=== PATIENT | female | born 1990 | race Caucasian/White ===

== ENCOUNTER 2017-03-17 13:31 | Emergency (ER) | payer OTHER ==
[2017-03-17 13:38] VITALS: BP 120/87; PULSE 98; TEMP 98.5; BMI 25.6
[2017-03-17] MEDS ORDERED: ALBUTEROL SO4 2.5/IPRATROPIUM 0.5 INH SOL 3 ML VIAL.NEB. NEB ONE ×2 (13:49→13:51)
[2017-03-17] MEDS ORDERED: predniSONE 20 MG TABLET (UD) PO ONE (13:58)
[2017-03-17] MEDS ORDERED: predniSONE 20 MG TABLET (UD) ONE (14:05)
--- NOTE | 2017-03-17 14:10 | PDOC ---
History of Present Illness - General Chief Complaint: Respiratory Stated Complaint: COUGH,SOB Time Seen by Provider: 03/17/17 13:47 History Source: Patient - History of Present Illness Initial Comments: 03/17/17 14:08 26 yo F with h/o asthma, here with c/o cough, sob and wheezing. states season changes are trigger for her. hasn't had an exacerbation in several years. no f/ c cough dry nonproductive. did have coughing fits wtih post tussive emesis once. started 3 days ago. tried using albuterol at home, was . no f/c. no cp. no h/o intubation or ICU admissions. Past History - Past Medical History Allergies/Adverse Reactions: Allergies Allergy/AdvReac Type Severity Reaction Status Date / Time No Known Allergies Allergy Verified 03/17/17 13:33 Home Medications: Ambulatory Orders Albuterol Sulfate Inhaler - [Ventolin HFA Inhaler -] 2 puff IH Q4H #1 inhaler NS 03/17/17 Prednisone [Deltasone -] 20 mg PO DAILY #10 tablet 03/17/17 Asthma: Yes (SEASONAL) Cancer: No Cardiac Disorders: No Diabetes: No HTN: No Seizures: No Thyroid Disease: No - Reproductive History (#): 2 Para: 1 Cervical CA: No Dysfunctional Uterine Bleeding: No Ectopic : No Endometrial CA: No Polycystic Ovaries: No Therapeutic (s) & number: No Tubal Ligation: No Spontaneous : 0 - Immunization History Td Vaccination: Yes Immunization Up to Date: Yes - Psycho/Social/Smoking Cessation Hx Anxiety: No Suicidal Ideation: No Smoking Status: No Smoking History: Current every day smoker Have you smoked in the past 12 months: No Number of Cigarettes Smoked Daily: 4 Cigars Per Day: 3 Information on smoking cessation initiated: No 'Breaking Loose' booklet given: 03/08/14 Hx Alcohol Use: No Drug/Substance Use Hx: No Substance Use Type: None Hx Substance Use Treatment: No Review of Systems - Review of Systems Constitutional: No: Chills, Diaphoresis, Fever HEENTM: No: Eye Pain, Blurred Vision Respiratory: Yes: Cough, Shortness of Breath, Wheezing. No: Orthopnea Cardiac (ROS): No: Chest Pain ABD/GI: No: Abdominal Distended, Nausea Musculoskeletal: No: Back Pain All Other Systems: Reviewed and Negative *Physical Exam - Vital Signs Last Vital Signs Temp Pulse Resp BP Pulse Ox 98.5 F 98 H 18 120/87 98 03/17/17 13:32 03/17/17 13:32 03/17/17 13:32 03/17/17 13:32 03/17/17 13:32 - Physical Exam General Appearance: Yes: Nourished, Appropriately Dressed HEENT: positive: Normal ENT Inspection, Normal Voice Neck: positive: Tender Respiratory/Chest: positive: Wheezing, Other (end exp wheezing bilaterally normal effort). negative: Accessory Muscle Use Cardiovascular: positive: Regular Rhythm, Regular Rate, S1, S2. negative: Edema , JVD Gastrointestinal/Abdominal: positive: Soft, Other (nontender). negative: Tender Musculoskeletal: positive: Normal Inspection Extremity: negative: Pedal Edema Integumentary: positive: Normal Color, Dry, Warm Neurologic: positive: Fully Oriented, Alert, Normal Mood/Affect ED Treatment Course - ADDITIONAL ORDERS Additional order review: Laboratory Results 03/17/17 13:48 Urine HCG, Qual Negative - Medications Given in the ED: ED Medications Discontinued Medications Generic Name Dose Route Start Last Admin Trade Name Freq PRN Reason Stop Dose Admin Albuterol/Ipratropium 1 amp 03/17/17 13:51 03/17/17 13:54 Duoneb - NEB 03/17/17 13:52 1 amp ONCE ONE Administration Medical Decision Making - Medical Decision Making 03/17/17 14:10 26 yo F with h/o asthma, allergic, seasonal trigger. will treate with duoneb. ucg. steroids x 5 days recommend zyrtec during summer to help reduce allergic trigger. observationjennifer dc home with alb inh and steroids. 03/17/17 14:17 pt feeling better after breathing tx. lencho wt steroids and inh. *DC/Admit/Observation/Transfer Diagnosis at time of Disposition: Asthma attack - Discharge Dispostion Disposition: HOME Condition at time of disposition: Stable Admit: No - Prescriptions Prescriptions: Prednisone [Deltasone -] 20 mg PO DAILY #10 tablet Albuterol Sulfate Inhaler - [Ventolin HFA Inhaler -] 2 puff IH Q4H #1 inhaler NS - Patient Instructions Printed Discharge Instructions: Asthma -- Adult Additional Instructions: take prednisone 20 mg daily x 5 days, starting tomorrow March 18, 2017. you can use albuterol 2 puffs every 4 hours as needed for coughing, wheezing or shortness of breath. use zyrtec 5 mg daily to help with allergy symptoms. you can buy over the counter. return for any worsening symtpoms, persistant wheezing despite medications or any concerns.
== END 2017-03-17 14:32 | disposition home or self-care (01) ==
LOC: FER 13:31
PROC: 3E0F7GC Introduction of Other Therapeutic Substance into Respiratory Tract, Via Natural or Artificial Opening (ICD-10-PCS; principal; 2017-03-17)
DX: J45.901 Unspecified asthma with (acute) exacerbation (principal); Z72.0 Tobacco use
CPT/HCPCS: 84703; 99281-25

== ENCOUNTER 2018-04-30 21:15 | Emergency (ER) | payer SELFPAY ==
[2018-04-30 21:35] VITALS: BP 134/87; PULSE 120; TEMP 99.8; BMI 28.3
[2018-04-30] MEDS ORDERED: CLINDAMYCIN HCL 300 MG CAPSULE PO ONE (21:39)
--- NOTE | 2018-04-30 21:43 | PDOC ---
History of Present Illness - General History Source: Patient Exam Limitations: No Limitations - History of Present Illness Initial Comments: 04/30/18 22:06 The patient is a 28 year old female, with a significant PMH of asthma, who presents to the emergency department with potential abscess to the right lower abdomen that occurred 2 days ago. Patient noticed a tender, warm to touch, non purulent and painful pimple 2 days ago with a severity of 9/10. Patient reports no relief with soaking pimple with epsom salt and warm water. The patient reports no previous episode of cellulitis or skin abscess, The patient denies chest pain, shortness of breath, headache and dizziness. Denies fever, chills, nausea, vomit, diarrhea and constipation. Allergies: NKDA Past surgical history: None reported Social history: Current smoker (4 cigarettes a day) and drinks alcohol occasionally but denies recreational drugs. PCP: None reported <Eun Delvalle - Last Filed: 04/30/18 22:15> <Constance Montez - Last Filed: 05/01/18 01:01> - General Chief Complaint: Pain, Acute Stated Complaint: POSSIBLE ABCESS TO ABDOMEN Time Seen by Provider: 04/30/18 21:21 Past History <Eun Delvalle - Last Filed: 04/30/18 22:15> - Past Medical History Asthma: Yes (SEASONAL) Cancer: No Cardiac Disorders: No COPD: No Diabetes: No HTN: No Seizures: No Thyroid Disease: No - Reproductive History (#): 2 Para: 1 Cervical CA: No Dysfunctional Uterine Bleeding: No Ectopic : No Endometrial CA: No Polycystic Ovaries: No Therapeutic (s) & number: No Tubal Ligation: No Spontaneous : 0 - Immunization History Td Vaccination: Yes Immunization Up to Date: Yes - Suicide/Smoking/Psychosocial Hx Smoking Status: No Smoking History: Current every day smoker Have you smoked in the past 12 months: Yes Number of Cigarettes Smoked Daily: 4 Cigars Per Day: 3 Information on smoking cessation initiated: Yes 'Breaking Loose' booklet given: 03/08/14 Hx Alcohol Use: Yes (OCCAS) Drug/Substance Use Hx: No Substance Use Type: None Hx Substance Use Treatment: No <Constance Montez - Last Filed: 05/01/18 01:01> - Past Medical History Allergies/Adverse Reactions: Allergies Allergy/AdvReac Type Severity Reaction Status Date / Time No Known Allergies Allergy Verified 04/30/18 21:16 Home Medications: Ambulatory Orders Albuterol Sulfate Inhaler - [Ventolin HFA Inhaler -] 2 puff IH Q4H #1 inhaler NS 03/17/17 Clindamycin HCl 300 mg PO TID #20 capsule 04/30/18 Review of Systems - Review of Systems Able to Perform ROS?: Yes Comments:: 04/30/18 22:06 GENERAL/CONSTITUTIONAL: No fever or chills. No weakness. HEAD, EYES, EARS, NOSE AND THROAT: No change in vision. No ear pain or discharge. No sore throat. CARDIOVASCULAR: No chest pain or shortness of breath. RESPIRATORY: No cough, wheezing, or hemoptysis. GASTROINTESTINAL: No nausea, vomiting, diarrhea or constipation. GENITOURINARY: No dysuria, frequency, or change in urination. MUSCULOSKELETAL: No joint or muscle swelling or pain. No neck or back pain. SKIN: +Right lower abdomen pimple NEUROLOGIC: No headache, vertigo, loss of consciousness, or change in strength/ sensation. ENDOCRINE: No increased thirst. No abnormal weight change. HEMATOLOGIC/LYMPHATIC: No anemia, easy bleeding, or history of blood clots. ALLERGIC/IMMUNOLOGIC: No hives or skin allergy. <Eun Delvalle - Last Filed: 04/30/18 22:15> *Physical Exam - Vital Signs Last Vital Signs Temp Pulse Resp BP Pulse Ox 99.8 F H 120 H 18 134/87 97 04/30/18 21:18 04/30/18 21:18 04/30/18 21:18 04/30/18 21:18 04/30/18 21:18 - Physical Exam Comments: 04/30/18 22:07 GENERAL: Awake, alert, and fully oriented, in no acute distress HEAD: No signs of trauma EYES: PERRLA, EOMI, sclera anicteric, conjunctiva clear ENT: Auricles normal inspection, hearing grossly normal, nares patent, oropharynx clear without exudates. Moist mucosa NECK: Normal ROM, supple, no lymphadenopathy, JVD, or masses LUNGS: Breath sounds equal, clear to auscultation bilaterally. No wheezes, and no crackles HEART: Regular rate and rhythm, normal S1 and S2, no murmurs, rubs or gallops ABDOMEN: Soft, nontender, normoactive bowel sounds. No guarding, no rebound. No masses EXTREMITIES: Normal range of motion, no edema. No clubbing or cyanosis. No cords, erythema, or tenderness NEUROLOGICAL: Cranial nerves II through XII grossly intact. Normal speech, normal gait SKIN: 3cm x 3cm erythematous tender indurated area to the midline abdomen wall with punctate central lesion.+ Faint erythema 4 cm border. No discharge or fluctuant noted. <Eun Delvalle - Last Filed: 04/30/18 22:15> - Vital Signs Last Vital Signs Temp Pulse Resp BP Pulse Ox 99.8 F H 120 H 18 134/87 97 04/30/18 21:18 04/30/18 21:18 04/30/18 21:18 04/30/18 21:18 04/30/18 21:18 <Constance Montez - Last Filed: 05/01/18 01:01> ED Treatment Course - Medications Given in the ED: ED Medications Discontinued Medications Generic Name Dose Route Start Last Admin Trade Name Adrianne PRN Reason Stop Dose Admin Clindamycin HCl 300 mg 04/30/18 21:39 04/30/18 21:46 Cleocin - PO 04/30/18 21:40 300 mg ONCE ONE Administration <Eun Delvalle - Last Filed: 04/30/18 22:15> Progress Note - Progress Note Progress Note: Documentation has been prepared under my direction and personally reviewed by me in its entirety. I attest that this documented accurately reflects all work, treatment, procedures and medical decision making performed by me. <Constance Montez - Last Filed: 05/01/18 01:01> Medical Decision Making - Medical Decision Making As noted above, this otherwise healthy 28-year-old woman presents with a several day history of progressive inflammation and tenderness of the lower abdominal wall. Lesion had started as a "pimple"; patient had squeezed the area and obtained clear yellowish material several days ago. Since then, the area has become more edematous, erythematous and painful. No previous history of skin abscesses/cellulitis. No history of resistant organism colonization or infection. Exam as noted The area is tender/indurated without fluctuance or discharge. Clinical presentation more consistent with cellulitis rather than drainable abscess. Patient will be discharged with instructions to continue warm packing the area. Antibiotics will be started for the cellulitic process: Clindamycin 300 mg will be given here and prescription for clindamycin 3 times a day for one week will be sent to her pharmacy. Meanwhile, the patient should return if she has increasing swelling/redness/ pain or has drainage from the area. <Constance Montez - Last Filed: 05/01/18 01:01> *DC/Admit/Observation/Transfer - Attestations Scribe Attestion: 04/30/18 22:09 Documentation prepared by Eun Delvalle, acting as medical transcriptionist for Constance Montez MD. <Eun Delvalle - Last Filed: 04/30/18 22:15> <Constance Montez - Last Filed: 05/01/18 01:01> Diagnosis at time of Disposition: Abdominal wall cellulitis - Discharge Dispostion Disposition: HOME Condition at time of disposition: Stable - Prescriptions Prescriptions: Clindamycin HCl 300 mg PO TID #20 capsule - Patient Instructions Printed Discharge Instructions: DI for Cellulitis -- Adult Additional Instructions: Continue moist heat to area of abdominal wall at least 3-4 times a day Clindamycin 300 mg 3 times a day for 1 week Acetaminophen/ibuprofen/naproxen as needed for pain Return to ER if you have worsening pain/redness/high fever/discharge from area Follow-up with your general doctor within the next 2-3 days
[2018-04-30] MEDS ORDERED: CLINDAMYCIN HCL 150 MG CAPSULE (FP) ONE (21:45)
== END 2018-04-30 21:49 | disposition home or self-care (01) ==
LOC: FER 21:15
DX: L03.311 Cellulitis of abdominal wall (principal)
CPT/HCPCS: 99281-25

== ENCOUNTER 2018-10-01 00:32 | Emergency (ER) | payer OTHER ==
[2018-10-01 00:38] VITALS: BMI 27.4
--- NOTE | 2018-10-01 01:11 | PDOC ---
History of Present Illness - General Chief Complaint: Nausea/Vomiting Stated Complaint: VOMITING SINCE THIS AM Time Seen by Provider: 10/01/18 00:41 - History of Present Illness Initial Comments: 10/01/18 01:26 28-year-old female with no significant past medical history presents emergency Department with 1 day of nausea, vomiting and diarrhea. Patient reports multiple episodes of brown, nonbloody watery diarrhea as well as 3 episodes of nonbloody nonbilious emesis. She denies any abdominal pain but reports epigastric cramping just prior to vomiting. Denies any fevers or chills. Came in tonight because she stated that she felt dehydrated. Reported gradual onset global headache just prior to arrival to the ED that has resolved after IV fluids. Currently denies nausea. Denies any dizziness or weakness. Denies sore throat or cough. Denies chest pain or shortness of breath. +dysuria since this morning as well. No sick contacts or recent travel. No treatments tried. Past History - Past Medical History Allergies/Adverse Reactions: Allergies Allergy/AdvReac Type Severity Reaction Status Date / Time No Known Allergies Allergy Verified 10/01/18 00:33 Home Medications: Ambulatory Orders Albuterol Sulfate Inhaler - [Ventolin HFA Inhaler -] 2 puff IH Q4H #1 inhaler NS 03/17/17 Asthma: Yes (SEASONAL) Cancer: No Cardiac Disorders: No COPD: No Diabetes: No HTN: No Seizures: No Thyroid Disease: No - Reproductive History (#): 2 Para: 1 Cervical CA: No Dysfunctional Uterine Bleeding: No Ectopic : No Endometrial CA: No Polycystic Ovaries: No Therapeutic (s) & number: No Tubal Ligation: No Spontaneous : 0 - Immunization History Td Vaccination: Yes Immunization Up to Date: Yes - Suicide/Smoking/Psychosocial Hx Smoking Status: No Smoking History: Current every day smoker Have you smoked in the past 12 months: Yes Number of Cigarettes Smoked Daily: 4 Cigars Per Day: 3 Information on smoking cessation initiated: Yes 'Breaking Loose' booklet given: 03/08/14 Hx Alcohol Use: No Drug/Substance Use Hx: No Substance Use Type: None Hx Substance Use Treatment: No Review of Systems - Review of Systems Comments:: 10/01/18 01:39 GENERAL/CONSTITUTIONAL: No fever or chills. No weakness. HEAD, EYES, EARS, NOSE AND THROAT: No change in vision. No ear pain or discharge. No sore throat. GASTROINTESTINAL: +nausea, vomiting, diarrhea, no constipation. GENITOURINARY: +dysuria, no frequency, or change in urination. CARDIOVASCULAR: No chest pain or shortness of breath. RESPIRATORY: No cough, wheezing, or hemoptysis. MUSCULOSKELETAL: No joint or muscle swelling or pain. No neck or back pain. SKIN: No rash NEUROLOGIC: +headache, vertigo, loss of consciousness, or change in strength/ sensation. ENDOCRINE: No increased thirst. No abnormal weight change. HEMATOLOGIC/LYMPHATIC: No anemia, easy bleeding, or history of blood clots. ALLERGIC/IMMUNOLOGIC: No hives or skin allergy. *Physical Exam - Vital Signs Last Vital Signs Temp Pulse Resp BP Pulse Ox 98.6 F 112 H 16 117/84 99 121818 00:34 1818 00:34 1818 00:34 1818 00:34 10/01/18 00:34 - Physical Exam Comments: 10/01/18 01:41 GENERAL: Awake, alert, and fully oriented, in no acute distress EYES: PERRLA, EOMI, sclera anicteric, conjunctiva clear ENT: Oropharynx clear without exudates. dry MM NECK: Normal ROM, supple, no lymphadenopathy, JVD, or masses LUNGS: Breath sounds equal, clear to auscultation bilaterally. No wheezes, and no crackles HEART: tachy to 106 but regular, normal S1 and S2, no murmurs, rubs or gallops ABDOMEN: Soft, nontender, normoactive bowel sounds. No guarding, no rebound. No masses : No CVAT EXTREMITIES: Normal range of motion, no edema. No cords, erythema, or tenderness NEUROLOGICAL: Normal speech, cranial nerves intact, equal strength and sensation b/l SKIN: Warm, Dry, normal turgor, no rashes or lesions noted. Moderate Sedation - Procedure Monitoring Vital Signs: Procedure Monitoring Vital Signs Temperature 98.6 F 10/01/18 00:34 Pulse Rate 112 H 18 00:34 Respiratory Rate 16 1818 00:34 Blood Pressure 117/84 18 00:34 O2 Sat by Pulse Oximetry (%) 99 10/01/18 00:34 ED Treatment Course - LABORATORY CBC & Chemistry Diagram: 12/18/18 01:30 10/01/18 01:02 Medical Decision Making - Medical Decision Making 10/01/18 01:42 28-year-old female with no significant past medical history presents to the emergency Department with 1 day of nausea, vomiting, diarrhea. Vitals remarkable for tachycardia to 120s. Exam with dry mucous membranes, otherwise unremarkable with benign abdominal exam. Likely viral gastroenteritis. Plan to check labs, UA given dysuria, UPT, rpt abd exam, and reassess. Will give 2L NS, pt declines medication for nausea. 10/01/18 02:39 Labs with no WBC, slightly hypomg and hypok -> repleted with IV Mg, PO KCl Upt neg Rpt HR 96 UA pending Currently PO challenging 10/01/18 03:27 Tolerating PO Feels much better Electrolytes repleted UA negative for infection Requests DC home, also requests work note Well appearing, non-toxic PT to f/u with PMD within 1-2 days I discussed the physical exam findings, ancillary test results and final diagnoses with the patient. I answered all of the patient's questions. The patient was satisfied with the care received and felt comfortable with the discharge plan and treatment plan. The patient will call their primary care physician within 24 hours to arrange follow-up and will return to the Emergency Department with any new, persistent or worsening symptoms. *DC/Admit/Observation/Transfer Diagnosis at time of Disposition: Gastroenteritis, Vomiting, Diarrhea - Discharge Dispostion Disposition: HOME Condition at time of disposition: Stable Decision to Admit order: No - Referrals - Patient Instructions Printed Discharge Instructions: DI for Vomiting -- Adult Additional Instructions: Follow up with your primary doctor within 1-2 days Drink plenty of fluids and stay hydrated Take zofran as needed every 8 hours for nausea Return to the emergency department if you have any new, worsening, or concerning symptoms - Post Discharge Activity - Attestations Physician Attestion: 10/01/18 03:33 I, Dr. Elena Araiza MD, attest that this document has been prepared under my direction and personally reviewed by me in its entirety. I further attest, that it accurately reflects all work, treatment, procedures and medical decision -making performed by me.
[2018-10-01] MEDS ORDERED: SODIUM CHLORIDE 1,000 ML IV STA ×2 (01:26)
[2018-10-01 01:59] LABS: BASO % 0.1 % (0-2.0); EOS % 1.2 % (0-4.5); HEMATOCRIT 38.8 % (32.4-45.2); HEMOGLOBIN 13.7 GM/dL (10.7-15.3); MCH 30.1 pg (25.7-33.7); MCHC 35.3 g/dl (32.0-36.0); MEAN CELL VOLUME 85.4 fl (80-96); MEAN PLT VOLUME 10.5 fl (7.5-11.1); MONO % 5.2 % (3.8-10.2); NEUT % 69.5 % (42.8-82.8); PLATELET COUNT 129 K/MM3 (134-434); RBC 4.54 M/mm3 (3.60-5.2); RDW 13.1 % (11.6-15.6); WHITE BLOOD COUNT 5.8 K/mm3 (4.0-10.0)
[2018-10-01 02:16] LABS: HCG,QUALITATIVE URINE NEGATIVE
[2018-10-01 02:21] LABS: URINE APPEARANCE CLEAR; URINE BILIRUBIN NEGATIVE (<2.0 mg/dL); URINE COLOR YELLOW; URINE GLUCOSE (UA) NEGATIVE (NEGATIVE); URINE KETONE TRACE (NEGATIVE); URINE LEUK ESTERASE TRACE (NEGATIVE); URINE NITRITE NEGATIVE (NEGATIVE); URINE PROTEIN NEGATIVE (NEGATIVE); URINE UROBILINOGEN NEGATIVE mg/dL (0.2-1.0)
[2018-10-01 02:21] LABS: MAGNESIUM 1.6 mg/dL (1.8-2.4)
[2018-10-01 02:22] LABS: ALK PHOS 87 U/L (45-117); ANION GAP 8 MMOL/L (8-16); BILIRUBIN,TOTAL 0.5 mg/dL (0.2-1); BLOOD UREA NITROGEN 14 mg/dL (7-18); CALCIUM 8.1 mg/dL (8.5-10.1); CHLORIDE 104 mmol/L (98-107); CO2 24 mmol/L (21-32); CREATININE 0.5 mg/dL (0.55-1.3); GLUCOSE,RANDOM 97 mg/dL (74-106); POTASSIUM 3.3 mmol/L (3.5-5.1); SGOT/AST 19 U/L (15-37); SGPT/ALT 19 U/L (13-61); SODIUM 135 mmol/L (136-145); TOT PROT 7.2 g/dl (6.4-8.2)
[2018-10-01] MEDS ORDERED: MAGNESIUM SULF 50% (8.12 MEQ/2 ML-1 GM VIAL) IVPB ONE (02:44)
[2018-10-01] MEDS ORDERED: POTASSIUM CHLORIDE ORAL LIQUID 20 MEQ/15 ML PO ONE (02:44)
[2018-10-01 02:46] VITALS: BP 116/65; PULSE 97; TEMP 98.9
[2018-10-01] MEDS ORDERED: POTASSIUM CHLORIDE ORAL LIQUID 20 MEQ/15 ML ONE (02:50)
[2018-10-01] MEDS ORDERED: MAGNESIUM 1GM/D5W - 1 GM/100 ML IVPB IVPB ONE (02:51)
[2018-10-01 03:29] LABS: EPI CELLS FEW /HPF (FEW); URINE HYALINE CAST 5 /lpf; URINE MUCUS MANY
== END 2018-10-01 03:38 | disposition home or self-care (01) ==
LOC: FER 00:32
PROC: 3E033GC Introduction of Other Therapeutic Substance into Peripheral Vein, Percutaneous Approach (ICD-10-PCS; principal; 2018-10-01)
PROC: 3E0337Z Introduction of Electrolytic and Water Balance Substance into Peripheral Vein, Percutaneous Approach (ICD-10-PCS; 2018-10-01)
DX: K52.9 Noninfective gastroenteritis and colitis, unspecified (principal); R11.2 Nausea with vomiting, unspecified
CPT/HCPCS: 36415; 80053; 81003; 81015; 83690; 83735; 84703; 85025; 87086; 99282-25; J7030

== ENCOUNTER 2019-03-04 10:04 | Emergency (ER) | payer OTHER ==
--- NOTE | 2019-03-04 10:09 | PDOC ---
History of Present Illness - General Chief Complaint: Respiratory Stated Complaint: SHORT OF BREATH CONGESTION Time Seen by Provider: 03/04/19 10:08 History Source: Patient Exam Limitations: No Limitations - History of Present Illness Initial Comments: 03/04/19 10:12 28 year old female with PMH asthma presented to ED for SOB x2 days. Pt stated x1 week ago she was diagnosed with tonsillitis, was prescribed antibiotics, and her sore throat has since resolved. She stated the last couple of days she has been feeling increasingly short of breath, with nonproductive cough. Her symptoms are constant, worsening, no alleviating or aggravating factors. She stated she has been using her rescue inhaler without relief of symptoms, she stated she does not have a nebulizer at home. Pt admitted to sick contacts, her children, who's symptoms have resolved. Pt denied chest pain, sputum production , fever, chills, nausea, vomiting, diarrhea, abdominal pain. Allergies: NKDA Past History - Past Medical History Allergies/Adverse Reactions: Allergies Allergy/AdvReac Type Severity Reaction Status Date / Time No Known Allergies Allergy Verified 10/01/18 00:33 Home Medications: Ambulatory Orders Albuterol 0.083% Nebulizer Dahlia [Ventolin 0.083% Nebulizer Soln -] 1 neb NEB Q4H PRN #30 vial 03/04/19 Fluticasone/Salmeterol [Fluticasone-Salmeterol 55-14] 1 puff IH BID #30 [email or web address] 03/04/19 Nebulizer Accessories [Adult Aerosol Mask] 1 each QID PRN #1 each 03/04/19 Nebulizer [Compact Compressor Nebulizer] 1 each QID PRN #1 each 03/04/19 predniSONE [Deltasone -] 40 mg PO DAILY #10 tablet 03/04/19 Asthma: Yes (SEASONAL) Cancer: No Cardiac Disorders: No COPD: No Diabetes: No HTN: No Seizures: No Thyroid Disease: No - Reproductive History (#): 2 Para: 1 Cervical CA: No Dysfunctional Uterine Bleeding: No Ectopic : No Endometrial CA: No Polycystic Ovaries: No Therapeutic (s) & number: No Tubal Ligation: No Spontaneous : 0 - Immunization History Td Vaccination: Yes Immunization Up to Date: Yes - Suicide/Smoking/Psychosocial Hx Smoking Status: No Smoking History: Current every day smoker Have you smoked in the past 12 months: Yes Number of Cigarettes Smoked Daily: 4 Cigars Per Day: 3 'Breaking Loose' booklet given: 10/01/18 Hx Alcohol Use: No Drug/Substance Use Hx: No Substance Use Type: None Hx Substance Use Treatment: No Review of Systems - Review of Systems Able to Perform ROS?: Yes Comments:: 03/04/19 10:13 General: denied fever, chills, generalized weakness. HEENT: denied sore throat, rhinorrhea, ear pain. Heart: denied chest pain, palpitations, syncope, diaphoresis. Respiratory: admitted to shortness of breath, cough. denied sputum production, hemoptysis. Abdomen: denied abdominal pain, nausea, vomiting, diarrhea, constipation, blood in stool. : denied dysuria, increased urinary frequency, hematuria, urinary incontinence , flank pain. Back: denied back pain. Musculoskeletal: denied joint pain, muscle pain, joint swelling. Neurological: denied headache, dizziness, numbness, tingling, weakness. Skin: denied rash, laceration, abrasion. *Physical Exam - Physical Exam Comments: 03/04/19 10:14 Constitutional: Well-nourished, Well-developed, appearing stated age. HEENT: head is normocephalic, atraumatic. EOMI. PERRLA. no tonsillar swelling bilaterally. no tonsillar exudates bilaterally. no posterior pharyngeal erythema. Neck: supple. Full ROM. Heart: regular rhythm. no murmurs, rubs or gallops. Lungs: bilateral rhonchi/wheezing. no labored breathing. no stridor. no retractions. speaking full sentences without difficulty. Abdomen: soft, nontender. normal bowel sounds. no rebound, guarding, masses. Extremities: peripheral pulses intact. no lower extremity edema. Neurological: CN 2-12 grossly intact. moves all four extremities. Psych: awake, alert, oriented x3. follows commands. answers questions appropriately. Medical Decision Making - Medical Decision Making 03/04/19 10:15 28 year old female with above PMH presented to ED for worsening SOB associated with recent tonsillitis. Initial Vital Signs Temp Pulse Resp BP Pulse Ox 97.9 F 84 18 134/84 100 03/04/19 10:06 03/04/19 10:06 03/04/19 10:06 03/04/19 10:06 03/04/19 10:06 Afebrile. No tachycardia. No tachypnea. Mild hypertension. No hypoxia on room air. Labs ordered: none Imaging ordered: none Medications ordered: duonebsx3, prednisone 40 mg PO once 03/04/19 11:11 Pt reported improvement of symptoms, requesting to go home. Examination: lung clear to auscultation, no wheezing, no rhonchi. no labored breathing. Pt discharged. Discharge medications: Flovent, nebulizer, albuterol nebulizer solution, prednisone 40 mg PO daily x5 days *DC/Admit/Observation/Transfer Diagnosis at time of Disposition: Asthma exacerbation - Discharge Dispostion Disposition: HOME Condition at time of disposition: Improved - Prescriptions Prescriptions: Albuterol 0.083% Nebulizer Dahlia [Ventolin 0.083% Nebulizer Soln -] 1 neb NEB Q4H PRN #30 vial PRN Reason: Asthma Fluticasone/Salmeterol [Fluticasone-Salmeterol 55-14] 1 puff IH BID #30 [email or web address] Nebulizer [Compact Compressor Nebulizer] 1 each MC QID PRN #1 each PRN Reason: Asthma Nebulizer Accessories [Adult Aerosol Mask] 1 each MC QID PRN #1 each PRN Reason: Asthma predniSONE [Deltasone -] 40 mg PO DAILY #10 tablet - Referrals - Patient Instructions Additional Instructions: You were seen today for shortness of breath. You are likely having an exacerbation of your asthma due to your recent illness. 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 Follow up with your primary care doctor within 1-3 days. Your care is not complete until you follow up. Return to the Emergency Department for increasing shortness of breath despite nebulizer use, chest pain, coughing up blood, coughing up sputum, fever>104F fever>5 days or any other new, worsening or concerning symptoms. - Post Discharge Activity Forms/Work/School Notes: Back to Work
[2019-03-04] MEDS ORDERED: ALBUTEROL SO4 2.5/IPRATROPIUM 0.5 INH SOL 3 ML VIAL.NEB. NEB ONE ×2 (10:11→10:21)
[2019-03-04 10:19] VITALS: BP 134/84; PULSE 84; TEMP 97.9; BMI 26.5
[2019-03-04] MEDS ORDERED: predniSONE 20 MG TABLET (UD) PO ONE (10:19)
[2019-03-04] MEDS ORDERED: predniSONE 20 MG TABLET (UD) ONE (10:21)
--- NOTE | 2019-03-04 11:13 | PDOC ---
Attending Attestation - Resident Resident Name: Hilda Hair - ED Attending Attestation I have performed the following: I have examined & evaluated the patient, The case was reviewed & discussed with the resident, I agree w/resident's findings & plan, Exceptions are as noted - HPI HPI: 03/04/19 11:15 Reviewed Residents HPI - Physicial Exam PE: 03/04/19 11:15 Reviewed Residents PE - Medical Decision Making 03/04/19 11:15 28 years old no significant past medical history history of mild asthma no intubations several exacerbations or near one-week history of this exacerbation worsening recent URI not relieved by home treatment Status post steroids nebs patient feeling much better she'll follow-up with her primary care provider she was started on a daily inhaled steroid as well as short course of prednisone
== END 2019-03-04 11:16 | disposition home or self-care (01) ==
LOC: FER 10:04
PROC: 3E0F7GC Introduction of Other Therapeutic Substance into Respiratory Tract, Via Natural or Artificial Opening (ICD-10-PCS; principal; 2019-03-04)
DX: J45.901 Unspecified asthma with (acute) exacerbation (principal); Z72.0 Tobacco use; J30.2 Other seasonal allergic rhinitis
CPT/HCPCS: 94640; 99281-25

== ENCOUNTER 2021-03-20 21:55 | Emergency (ER) | payer OTHER ==
[2021-03-20 22:04] VITALS: BP 140/85; PULSE 111; TEMP 99.5; BMI 26.5
== END 2021-03-20 22:48 | disposition home or self-care (01) ==
LOC: FER 21:55
DX: S83.412A Sprain of medial collateral ligament of left knee, initial encounter (principal)
CPT/HCPCS: 73560-TC-LT-FY; 99283-25

== ENCOUNTER → 2021-11-09 | Day surgery (SDC) | payer OTHER | END | disposition home or self-care (01) | LOC: JRADUS-SUR 12:17 | PROVIDERS: ATTEND Midwife | PROC: 0H9U3ZX Drainage of Left Breast, Percutaneous Approach, Diagnostic (ICD-10-PCS; principal; 2021-11-09) | DX: N60.12 Diffuse cystic mastopathy of left breast (principal) | CPT/HCPCS: 19083; 87899; 88305-TC; A4648 ==

== ENCOUNTER 2023-05-04 20:45 | Emergency (ER) | payer OTHER ==
[2023-05-04 21:01] VITALS: BP 133/94; PULSE 98; RESP 20; TEMP 97.9; BMI 25.6
== END 2023-05-04 23:35 | disposition left against medical advice (07) ==
LOC: JER 20:45
DX: O26.891 Other specified pregnancy related conditions, first trimester (principal); R10.30 Lower abdominal pain, unspecified; Z3A.01 Less than 8 weeks gestation of pregnancy
CPT/HCPCS: 76817-TC; 99284-25

== ENCOUNTER 2024-12-12 02:26 | Emergency (ER) | payer OTHER ==
[2024-12-12] MEDS ORDERED: ALBUTEROL SO4 2.5/IPRATROPIUM 0.5 INH SOL 3 ML VIAL.NEB. NEB ONE (02:33)
[2024-12-12] MEDS: ALBUTEROL SO4 2.5/IPRATROPIUM 0.5 INH SOL 3 ML VIAL.NEB. NEB ONE ×2 (02:42→03:06)
[2024-12-12] MEDS ORDERED: ALBUTEROL SO4 HFA INHALER IH ONE (02:43)
[2024-12-12] MEDS: ALBUTEROL SO4 HFA INHALER IH ONE (02:43)
[2024-12-12 02:44] VITALS: BP 182/108; PULSE 112; RESP 18; TEMP 97.3; BMI 27.4
== END 2024-12-12 03:14 | disposition home or self-care (01) ==
LOC: FER 02:26
PROC: 3E0F7GC Introduction of Other Therapeutic Substance into Respiratory Tract, Via Natural or Artificial Opening (ICD-10-PCS; principal; 2024-12-12)
DX: J45.20 Mild intermittent asthma, uncomplicated (principal); R07.89 Other chest pain; R06.02 Shortness of breath
CPT/HCPCS: 99283-25